=== PATIENT | female | born 1955 | race African-American/Black ===

== ENCOUNTER 2016-11-27 07:22 | Emergency (ER) | payer MEDICAID, OTHER ==
[~2016-11-27] VITALS: Ht 167.6 cm; Wt 62.0 kg
[2016-11-27] MEDS ORDERED: ALBUTEROL (0.083%) 2.5MG/3ML NEB HHN STA (09:23)
[2016-11-27] MEDS ORDERED: IPRATROPIUM BROMIDE (0.02%) 0.5MG/2.5ML NEB HHN STA (09:23)
[2016-11-27] MEDS ORDERED: ALBUTEROL (0.5%) 2.5MG/0.5ML NEB HHN ONE (09:43)
[2016-11-27 10:35] VITALS: BP 143/72
== END 2016-11-27 10:42 | disposition home or self-care (01) ==
LOC: ER 07:22
DX: J44.0 Chronic obstructive pulmonary disease with (acute) lower respiratory infection (principal); J20.9 Acute bronchitis, unspecified; R03.0 Elevated blood-pressure reading, without diagnosis of hypertension; R11.0 Nausea; D64.9 Anemia, unspecified; J45.909 Unspecified asthma, uncomplicated; F17.211 Nicotine dependence, cigarettes, in remission; Z88.6 Allergy status to analgesic agent; Z88.5 Allergy status to narcotic agent; Z88.8 Allergy status to other drugs, medicaments and biological substances; Z98.890 Other specified postprocedural states; Z79.51 Long term (current) use of inhaled steroids
CPT/HCPCS: 94640; 99283; J7611

== ENCOUNTER 2017-01-16 14:16 | Emergency (ER) | payer MEDICAID, OTHER ==
[~2017-01-16] VITALS: Ht 167.6 cm; Wt 62.0 kg
[2017-01-16] MEDS ORDERED: KETOROLAC 30MG/ML VIAL IV STA (15:02)
[2017-01-16] MEDS ORDERED: SODIUM CHLORIDE 0.9% 1,000 ML IV ONE (15:02)
[2017-01-16] MEDS ORDERED: ONDANSETRON HCL 4MG/2ML VIAL IV STA (15:02)
[2017-01-16 15:16] LABS: CLARITY URINE CLEAR (CLEAR); COLOR URINE YELLOW (YELLOW); GLUCOSE URINE NEGATIVE (NEGATIVE); KETONES URINE NEGATIVE (NEGATIVE); LEUKOCYTE ESTERASE URINE NEGATIVE (NEGATIVE); NITRITE URINE NEGATIVE (NEGATIVE); OCCULT BLOOD URINE NEGATIVE (NEGATIVE); PROTEIN URINE NEGATIVE (NEGATIVE); SPECIFIC GRAVITY URINE 1.034 (1.005-1.030)
[2017-01-16 15:27] LABS: BASOPHILS % 0.5 % (0.0-2.0); EOSINOPHILS % 2.7 % (0.0-5.0); HEMOGLOBIN. 12.1 g/dL (12.0-16.0); LYMPHOCYTES % 35.4 % (20.0-50.0); MEAN CORPUSCULAR HEMOGLOBIN 28.1 pg (28.0-32.0); MEAN CORPUSCULAR VOLUME 83.4 fL (81.0-99.0); MEAN PLATELET VOLUME 8.6 fl (7.4-10.4); MONOCYTES % 10.1 % (2.0-8.0); NEUTROPHILS % 51.3 % (40.0-76.0); PLATELET 155 x1000/uL (130-400); RED BLOOD CELL COUNT 4.32 mill/uL (4.2-5.4)
[2017-01-16 15:29] LABS: CHLORIDE 107 mEq/L (98-107)
[2017-01-16 15:31] LABS: PROTHROMBIN TIME 10.7 sec
[2017-01-16 15:37] LABS: CARBON DIOXIDE 26 mEq/L (21-32)
[2017-01-16] MEDS ORDERED: KETOROLAC 30MG/ML VIAL IV ONE (17:45)
[2017-01-16 18:00] VITALS: BP 127/73
== END 2017-01-16 18:28 | disposition home or self-care (01) ==
LOC: ER 14:47
DX: R10.9 Unspecified abdominal pain (principal); Z88.6 Allergy status to analgesic agent; J44.9 Chronic obstructive pulmonary disease, unspecified; Z87.891 Personal history of nicotine dependence
CPT/HCPCS: 36415; 74176; 76705; 80053; 81003; 83690; 85025; 85610; 96361; 96374; 96375; 96376; 99285; J1885; J2405; J7030; Z7610

== ENCOUNTER 2018-02-25 11:58 | Emergency (ER) | payer OTHER ==
[~2018-02-25] VITALS: Ht 167.6 cm; Wt 57.0 kg
[2018-02-25 16:20] VITALS: BP 141/55
== END 2018-02-25 16:45 | disposition home or self-care (01) ==
LOC: ER 13:14
DX: Z45.2 Encounter for adjustment and management of vascular access device (principal); I10 Essential (primary) hypertension; M79.7 Fibromyalgia; Z88.6 Allergy status to analgesic agent; Z88.8 Allergy status to other drugs, medicaments and biological substances; Z88.5 Allergy status to narcotic agent
CPT/HCPCS: 99283; 99284

== ENCOUNTER 2018-03-01 08:37 | Emergency (ER) | payer OTHER ==
[~2018-03-01] VITALS: Ht 167.6 cm; Wt 57.0 kg
[2018-03-01 10:36] LABS: EOSINOPHILS % 3.2 % (0.0-5.0); HEMATOCRIT. 38.2 % (36.0-48.0); HEMOGLOBIN. 12.6 g/dL (12.0-16.0); LYMPHOCYTES % 40.4 % (20.0-50.0); MEAN CORPUSCULAR HEMOGLOBIN 28.4 pg (28.0-32.0); MEAN PLATELET VOLUME 8.5 fl (7.4-10.4); MONOCYTES % 9.3 % (2.0-8.0); NEUTROPHILS % 46.1 % (40.0-76.0); PLATELET 189 x1000/uL (130-400); RED BLOOD CELL COUNT 4.44 mill/uL (4.2-5.4); RED CELL DISTRIBUTION WIDTH 13.7 % (11.6-14.6)
[2018-03-01 10:40] LABS: CHLORIDE 105 mEq/L (98-107)
[2018-03-01 11:44] LABS: CLARITY URINE CLEAR (CLEAR); COLOR URINE YELLOW (YELLOW); KETONES URINE NEGATIVE (NEGATIVE); LEUKOCYTE ESTERASE URINE NEGATIVE (NEGATIVE); NITRITE URINE NEGATIVE (NEGATIVE); OCCULT BLOOD URINE NEGATIVE (NEGATIVE); PH URINE 7.5 (4.5-8.0); PROTEIN URINE NEGATIVE (NEGATIVE); SPECIFIC GRAVITY URINE 1.017 (1.005-1.030); UROBILINOGEN URINE 0.2 E.U./dL (0.2-1.0)
[2018-03-01 13:40] VITALS: BP 136/78
== END 2018-03-01 13:56 | disposition home or self-care (01) ==
LOC: ER 08:37
DX: M54.5 Low back pain (principal); T82.868A Thrombosis due to vascular prosthetic devices, implants and grafts, initial encounter; Y82.8 Other medical devices associated with adverse incidents; Y92.098 Other place in other non-institutional residence as the place of occurrence of the external cause
CPT/HCPCS: 36415; 72100; 80053; 81003; 85025; 93005; 99285

== ENCOUNTER 2018-03-11 08:26 | Emergency (ER) | payer OTHER ==
[~2018-03-11] VITALS: Ht 167.6 cm; Wt 62.0 kg
[2018-03-11 10:48] VITALS: BP 138/67
== END 2018-03-11 10:49 | disposition home or self-care (01) ==
LOC: ER 09:02
DX: Z48.01 Encounter for change or removal of surgical wound dressing (principal); M79.7 Fibromyalgia; I10 Essential (primary) hypertension; M86.9 Osteomyelitis, unspecified; Z88.6 Allergy status to analgesic agent; Z88.5 Allergy status to narcotic agent; Z88.8 Allergy status to other drugs, medicaments and biological substances
CPT/HCPCS: 99284

== ENCOUNTER 2020-04-15 11:16 | Emergency (ER) | payer MEDICAID, OTHER ==
[~2020-04-15] VITALS: Ht 167.6 cm; Wt 65.0 kg
[2020-04-15] MEDS ORDERED: TRAMADOL 50MG TABLET PO ONE (14:45)
[2020-04-15 15:43] VITALS: BP 148/76
== END 2020-04-15 15:48 | disposition home or self-care (01) ==
LOC: ER 11:16
DX: M25.562 Pain in left knee (principal); M25.561 Pain in right knee; I10 Essential (primary) hypertension; J44.9 Chronic obstructive pulmonary disease, unspecified; Z88.6 Allergy status to analgesic agent; Z98.890 Other specified postprocedural states
CPT/HCPCS: 73560; 99283